=== PATIENT | female | born 1990 | race Caucasian/White ===

== ENCOUNTER → 2019-09-07 | Outpatient (CLI) | payer OTHER ==
[2019-09-07 20:32] LABS: BASO # 0.1 10^3/uL (0.0-0.2); BASO % 0.6 % (0.0-1.0); EOS # 0.3 10^3/uL (0.0-0.5); HEMATOCRIT 42.4 % (36.0-47.0); HEMOGLOBIN 13.2 g/dl (12.0-15.5); LYMPH # 2.3 10^3/uL (1.5-5.0); LYMPH % 23.5 % (24.0-44.0); MEAN CORPUSCULAR HGB CONC 31.1 g/dl (32.0-36.5); MEAN CORPUSCULAR VOLUME 83.6 fl (80.0-96.0); MONO # 0.7 10^3/uL (0.0-0.8); MONO % 7.6 % (0.0-5.0); NEUTROPHILS # 6.2 10^3/uL (1.5-8.5); PLATELET COUNT, AUTOMATED 361 10^3/uL (150-450); RED BLOOD COUNT 5.07 10^6/uL (4.00-5.40); WHITE BLOOD COUNT 9.6 10^3/uL (4.0-10.0)
[2019-09-07 20:42] LABS: ALBUMIN 3.6 GM/DL (3.2-5.2); ALT/SGPT 29 U/L (12-78); BILIRUBIN,DIRECT 0.1 MG/DL (0.0-0.2); BILIRUBIN,TOTAL 0.5 MG/DL (0.2-1.0); BLOOD UREA NITROGEN 9 MG/DL (7-18); CARBON DIOXIDE LEVEL 23 MEQ/L (21-32); CHLORIDE LEVEL 108 MEQ/L (98-107); CHOLESTEROL LEVEL 273 MG/DL (<200); CHOLESTEROL RISK RATIO 7.378 (<5); CREATININE FOR GFR 0.64 MG/DL (0.55-1.30); GLOMERULAR FILTRATION RATE > 60.0 (>60); GLUCOSE, FASTING 92 MG/DL (70-100); HDL CHOLESTEROL 37 MG/DL (>40); LDL CHOLESTEROL 195 MG/DL (<100); NON-HDL-C 236 MG/DL; POTASSIUM SERUM 4.3 MEQ/L (3.5-5.1); SODIUM LEVEL 139 MEQ/L (136-145); TOTAL PROTEIN 7.3 GM/DL (6.4-8.2); TRIGLYCERIDES LEVEL 205 MG/DL (<150)
[2019-09-07 20:51] LABS: FREE THYROXINE INDEX 3.3 % (1.3-4.8); THYROID STIMULATING HORMONE 0.957 uIU/ML (0.358-3.740); THYROXINE (T4) 10.4 UG/DL (4.5-12.0)
[2019-09-07 20:53] LABS: HEMOGLOBIN A1c 6.2 %
== END ==
LOC: M LRY 14:24
PROVIDERS: ATTEND Psychiatry & Neurology Psychiatry
DX: F41.1 Generalized anxiety disorder (principal); F33.1 Major depressive disorder, recurrent, moderate; F40.10 Social phobia, unspecified

== ENCOUNTER 2021-02-21 07:12 | Emergency (ER) | payer OTHER ==
[~2021-02-21] VITALS: Ht 165.1 cm; Wt 101.6 kg
[2021-02-21] MEDS ORDERED: ONDANSETRON 4MG/2ML VIAL IV ONE (07:45)
[2021-02-21] MEDS ORDERED: NS 1,000 ML IV ONE (07:45)
[2021-02-21 08:09] LABS: BASO # 0.1 10^3/uL (0.0-0.2); BASO % 0.5 % (0.0-1.0); EOS # 0.1 10^3/uL (0.0-0.5); EOS % 0.9 % (0.0-3.0); HEMATOCRIT 41.7 % (36.0-47.0); HEMOGLOBIN 13.9 g/dl (12.0-15.5); LYMPH % 13.6 % (24.0-44.0); MEAN CORPUSCULAR HEMOGLOBIN 29.4 pg (27.0-33.0); MEAN CORPUSCULAR HGB CONC 33.3 g/dl (32.0-36.5); MEAN CORPUSCULAR VOLUME 88.3 fl (80.0-96.0); MONO # 0.8 10^3/uL (0.0-0.8); MONO % 5.3 % (2.0-8.0); NEUTROPHILS # 11.7 10^3/uL (1.5-8.5); NEUTROPHILS % 79.4 % (36.0-66.0); PLATELET COUNT, AUTOMATED 383 10^3/uL (150-450); RED BLOOD COUNT 4.72 10^6/uL (4.00-5.40); WHITE BLOOD COUNT 14.7 10^3/uL (4.0-10.0)
[2021-02-21] MEDS ORDERED: KETOROLAC 30 MG/ML 1ML VIAL IV ONE (08:10)
[2021-02-21 08:42] LABS: BLOOD UREA NITROGEN 9 MG/DL (7-18); CALCIUM LEVEL 9.7 MG/DL (8.5-10.1); CARBON DIOXIDE LEVEL 25 MEQ/L (21-32); CHLORIDE LEVEL 110 MEQ/L (98-107); CREATININE FOR GFR 0.72 MG/DL (0.55-1.30); GLOMERULAR FILTRATION RATE > 60.0 (>60); GLUCOSE, FASTING 124 MG/DL (70-100); POTASSIUM SERUM 3.6 MEQ/L (3.5-5.1); SODIUM LEVEL 141 MEQ/L (136-145)
[2021-02-21] MEDS ORDERED: MORPHINE 4 MG/ML 1ML VIAL/SYRINGE (J2270) IV ONE (09:15)
--- NOTE | 2021-02-21 09:36 | REP ---
INDICATION: left flank pain history of kidney stones and gastric bypass. COMPARISON: No comparison CT studies available.. TECHNIQUE: Helical scanning is acquired and 3 mm axial images were reformatted. Coronal and sagittal MPR images were generated and reviewed. 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 The lung bases are clear on axial CT images. No pleural effusion or upper abdominal ascites is seen. The liver and the spleen are normal in size homogeneous in texture. The patient is status post gastric bypass procedure with sutures in the left upper quadrant. Normal adrenal glands are seen. No abnormality is noted in the pancreas or the gallbladder. There is mild to moderate left-sided hydronephrosis due to a calculus in the left mid ureter this calculus measures 6 mm in greatest diameter and is seen at the level of the L3-4 disc in the left mid ureter. There is some mild Araceli ureteral edema. No other urinary tract calculus is appreciated. No hydronephrosis on the right. Urinary bladder is unremarkable. No uterine or ovarian abnormality is seen. Normal appendix is noted in the right lower quadrant. There is a tiny defect in the anterior abdominal wall at the level of the umbilicus trans Tang a 1 cm lobule of the abdominal fat. No other abdominal wall defect is seen. No bony destructive lesion is seen. IMPRESSION: Mild to moderate left-sided hydronephrosis due to a 6 mm obstructive left mid ureteral calculus noted at the level of the L3-4 intervertebral disc. <Electronically signed by Roberto Giraldo > 02/21/21 0907
[2021-02-21] MEDS ORDERED: FLOM0.4C39 PO (10:55)
[2021-02-21] MEDS ORDERED: HYDR-3713 PO (10:55)
[2021-02-21] MEDS ORDERED: ONDA4TAB6 PO (10:55)
[2021-02-21] MEDS ORDERED: KETO10TAB PO (10:55)
[2021-02-21 11:02] VITALS: BP 115/56
== END 2021-02-21 11:07 | disposition home or self-care (01) ==
LOC: M ED 07:12
DX: N13.1 Hydronephrosis with ureteral stricture, not elsewhere classified (principal); F41.9 Anxiety disorder, unspecified; Z88.5 Allergy status to narcotic agent
CPT/HCPCS: 74176; 80048; 81001; 84702; 85025; 96361; 96374; 96375; 99284; J1885; J2270; J2405

== ENCOUNTER → 2021-08-15 | Outpatient (REF) ==
[~2021-08-15] MED LIST: FLOM0.4C39 PO; HYDR-3713 PO; KETO10TAB PO; ONDA4TAB6 PO
== END ==
LOC: M LABSMTC 12:39
PROVIDERS: ATTEND Pediatrics
DX: Z11.52 Encounter for screening for COVID-19 (principal); Z20.822 Contact with and (suspected) exposure to COVID-19

== ENCOUNTER 2023-07-28 15:12 | Outpatient (CLI) | payer OTHER ==
[~2023-07-28] VITALS: Ht 165.1 cm; Wt 83.2 kg
[~2023-07-28 15:12] MED LIST changes: +ALBUTEROL SULFATE 2.5MG/0.5ML INH NEB SOLN INH PRN; +EPINEPHrine INJ 1 MG/ML 1ML AMP IM PRN; +diphenhydrAMINE 50MG/ML VIAL IV PRN; +methylPREDNISolone 125MG 2ML VIAL IV PRN
[2023-07-28 15:50] VITALS: BP 136/61; O2SAT 100
[2023-07-28] MEDS ORDERED: FERRIC CARBOXYMALTOSE INJ 750 MG in NS 250 ML (>50kg) IV ONE ×3 (16:00)
[2023-07-28] MEDS ORDERED: NS 1,000 ML IV SCH (16:00)
[2023-07-28] MEDS ORDERED: ONE-1TAB PO (16:16)
[2023-07-28] MEDS ORDERED: VITAMIN D PO (16:18)
[2023-07-28] MEDS ORDERED: VITA100T59 PO (16:19)
[2023-07-28] MEDS ORDERED: NOXI1TAB PO (16:20)
[2023-07-28] MEDS ORDERED: B-12100010 PO (16:22)
[2023-07-28] MEDS ORDERED: CALC600T60 PO (16:22)
[2023-07-28] MEDS ORDERED: [UNRECOGNIZED DRUG - OTHER] PO (16:25)
[2023-07-28] MEDS ORDERED: BIOT1CAP2 PO (16:25)
[2023-07-28] MEDS ORDERED: IRON1TAB2 PO (16:25)
[2023-07-28 17:25] VITALS: BP 135/76; O2SAT 100
== END 2023-07-28 17:25 ==
LOC: M INFU 15:12
PROVIDERS: ATTEND Student in an Organized Health Care Education/Training Program
DX: D50.9 Iron deficiency anemia, unspecified (principal); Z88.5 Allergy status to narcotic agent
CPT/HCPCS: 96365; J1439

== ENCOUNTER 2023-08-04 16:05 | Outpatient (CLI) | payer OTHER ==
[~2023-08-04] VITALS: Ht 165.1 cm; Wt 84.4 kg
[2023-08-04 16:05] VITALS: BP 116/71; O2SAT 98
[~2023-08-04 16:05] MED LIST changes: +B-12100010 PO; +BIOT1CAP2 PO; +CALC600T60 PO; +FERRIC CARBOXYMALTOSE INJ 750 MG in NS 250 ML (>50kg) IV ONE; +IRON1TAB2 PO; +NOXI1TAB PO; +NS 1,000 ML IV SCH; +ONE-1TAB PO; +VITA100T59 PO; +VITAMIN D PO; +[UNRECOGNIZED DRUG - OTHER] PO
[2023-08-04 17:30] VITALS: BP 125/58; O2SAT 98
== END 2023-08-04 17:35 | disposition home or self-care (01) ==
LOC: M INFU 16:05
PROVIDERS: ATTEND Student in an Organized Health Care Education/Training Program
DX: D50.9 Iron deficiency anemia, unspecified (principal); Z88.5 Allergy status to narcotic agent
CPT/HCPCS: 96365; J1439

== ENCOUNTER 2024-11-01 12:35 | Outpatient (CLI) | payer OTHER ==
[~2024-11-01] VITALS: Ht 167.6 cm; Wt 87.3 kg
[~2024-11-01 12:35] MED LIST changes: -FERRIC CARBOXYMALTOSE INJ 750 MG in NS 250 ML (>50kg) IV ONE; +MULT18TA PO; -NS 1,000 ML IV SCH; +ONDA-282 PO; -ONDA4TAB6 PO; -ONE-1TAB PO
[2024-11-01 12:45] VITALS: BP 108/68; O2SAT 98
[2024-11-01] MEDS: FERRIC CARBOXYMALTOSE 750 MG (VIAL MATE) IN 100ML NS IV ONE (12:57)
[2024-11-01 13:42] VITALS: BP 115/56; O2SAT 98
== END 2024-11-01 13:45 ==
LOC: M INFU 12:35
PROVIDERS: ATTEND Student in an Organized Health Care Education/Training Program
DX: D50.9 Iron deficiency anemia, unspecified (principal); Z88.5 Allergy status to narcotic agent
CPT/HCPCS: 96365; J1439

== ENCOUNTER 2024-11-08 14:55 | Outpatient (CLI) | payer OTHER ==
[~2024-11-08] VITALS: Ht 165.1 cm; Wt 85.9 kg
[2024-11-08 15:10] VITALS: BP 113/52; O2SAT 98
[2024-11-08] MEDS: FERRIC CARBOXYMALTOSE 750 MG (VIAL MATE) IN 100ML NS IV ONE (15:10)
[2024-11-08] MEDS ORDERED: ACETAMINOPHEN 650 MG PO ONE (15:30)
[2024-11-08 15:39] VITALS: BP 109/54; O2SAT 98
== END 2024-11-08 15:40 ==
LOC: M INFU 14:55
PROVIDERS: ATTEND Student in an Organized Health Care Education/Training Program
DX: D64.9 Anemia, unspecified (principal); Z88.5 Allergy status to narcotic agent
CPT/HCPCS: 96365; J1439